=== PATIENT | male | born 1995 | race Caucasian/White ===

== ENCOUNTER 2017-08-16 18:29 | Emergency (ER) | payer BC, OTHER ==
--- NOTE | 2017-08-16 18:47 | UC ---
Laceration HPI - HPI Summary HPI Summary: 22 year old male presents with left eye laceration 2.5 to 5 cm in length. - History Of Current Complaint Stated Complaint: EYE LACERATION Time Seen by Provider: 08/16/17 18:47 Hx Obtained From: Patient Laceration Location: Face Onset/Duration: Sudden Onset Severity: Moderate Pain Scale Used: 0-10 Numeric - 4 Aggravating Factors: Nothing - Allergies/Home Medications Allergies/Adverse Reactions: Allergies Allergy/AdvReac Type Severity Reaction Status Date / Time No Known Allergies Allergy Verified 08/16/17 18:50 Home Medications: Home Medications ValACYclovir (*) [Valtrex 1 GM(*)] 1 gm PO DAILY PRN 08/16/17 [History Confirmed 08/16/17] PMH/Surg Hx/FS Hx/Imm Hx Previously Healthy: Yes - Surgical History Surgical History: None - Social History Alcohol Use: None Substance Use Type: None Review of Systems Constitutional: Negative Skin: Other - left eye laceration 2.5 to 5 cm Eyes: Negative ENT: Negative Respiratory: Negative Cardiovascular: Negative Gastrointestinal: Negative Genitourinary: Negative Motor: Negative Neurovascular: Negative Musculoskeletal: Negative Neurological: Negative Psychological: Negative All Other Systems Reviewed And Are Negative: Yes Physical Exam Triage Information Reviewed: Yes Vital Signs Reviewed: Yes Eye Exam: Normal ENT Exam: Normal Dental Exam: Normal Neck exam: Normal Neck: Positive: 1 Respiratory Exam: Normal Cardiovascular Exam: Normal Abdominal Exam: Normal Musculoskeletal Exam: Normal Neurological Exam: Normal Psychological Exam: Normal Skin: Positive: Other - left eye laceration. Laceration Repair - Laceration Repair 1 Laceration Size After Repair: Length (cm) - 2.5 to 5 cm Modified For Repair: No Cleansing Completed Via Routine Prep: Yes Closure Material: Skin Adhesive - dermabond Closure Method: Single Layer Laceration Course/Dx - Differential Dx - Laceration/Wound Provider Diagnoses: laceration left eye Discharge - Discharge Plan Condition: Stable Disposition: HOME Prescriptions: Cephalexin CAP* [Keflex CAP*] 500 mg PO TID #21 cap Patient Education Materials: Laceration (ED) Referrals: No Primary Care Phys,NOPCP [Primary Care Provider] -
[2017-08-16] MEDS ORDERED: Cephalexin CAP* 500 MG PO ONE (19:01)
== END 2017-08-16 19:25 | disposition home or self-care (01) ==
LOC: UCCORT 18:29
DX: S05.32XA Ocular laceration without prolapse or loss of intraocular tissue, left eye, initial encounter (principal); X58.XXXA Exposure to other specified factors, initial encounter; Y93.9 Activity, unspecified; Y92.9 Unspecified place or not applicable
CPT/HCPCS: 12013; 99202; A9270-GY; G0463

== ENCOUNTER 2018-08-15 09:52 | Emergency (ER) | payer BC ==
--- NOTE | 2018-08-15 12:34 | UC ---
Complaint Male HPI - HPI Summary HPI Summary: Per pt. he had a gi bug during xmas that last a few days. He is here today stating he feels much better aside from occasional stomach cramping. His BMs have returned to normal and is free from symptoms. He wants to get lab work for Vit d Def. and testosterone since his pcp's office is too far and he doesn' t want to 'waste time to go all the way over there just to get lab work'. - History of Current Complaint Chief Complaint: UCGI Stated Complaint: DIARRHEA,NAUSEA Time Seen by Provider: 08/15/18 12:25 Hx Obtained From: Patient - Allergies/Home Medications Allergies/Adverse Reactions: Allergies Allergy/AdvReac Type Severity Reaction Status Date / Time cefuroxime [From Ceftin] Allergy Unknown Verified 08/15/18 12:26 Reaction Details Home Medications: Home Medications L.acidoph,Paracasei, B.lactis [Probiotic] 1 each PO DAILY 08/15/18 [History Confirmed 08/15/18] PMH/Surg Hx/FS Hx/Imm Hx Previously Healthy: Yes - Surgical History Surgical History: None - Social History Alcohol Use: None Substance Use Type: None Substance Use Comment - Amount & Last Used: occasional Smoking Status (MU): Never Smoked Tobacco Type: Smokeless Tobacco - Immunization History Most Recent Tetanus Shot: up to date per pt Review of Systems All Other Systems Reviewed And Are Negative: Yes Gastrointestinal: Positive: Negative Physical Exam Triage Information Reviewed: Yes Appearance: Well-Appearing Abdomen Description: Positive: Nontender, Soft Complaint Male Course/Dx - Course Course Of Treatment: GI symptoms resolved. Had to decline his request for family medicine issues that should be evaluated by his pcp as we have limited labs here. Pt. verbalized understanding. - Differential Dx/Diagnosis Differential Diagnosis/HQI/PQRI: Other Provider Diagnosis: Resolved abdominal pain, Worried well Discharge - Sign-Out/Discharge Documenting (check all that apply): Patient Departure All imaging exams completed and their final reports reviewed: No Studies - Discharge Plan Condition: Good Disposition: HOME Patient Education Materials: Gastroenteritis (ED) Referrals: Dieudonne Bernal [Primary Care Provider] - Additional Instructions: If you want testosterone and vitamin d levels tested please follow up with your pcp. - Billing Disposition and Condition Condition: GOOD Disposition: Home
[2018-08-15 12:36] VITALS: BP 119/66
== END 2018-08-15 12:51 | disposition home or self-care (01) ==
LOC: UCCORT 09:52
DX: Z71.1 Person with feared health complaint in whom no diagnosis is made (principal); Z88.1 Allergy status to other antibiotic agents
CPT/HCPCS: 99211; G0463